=== PATIENT | male | born 1955 | race Caucasian/White ===

== ENCOUNTER 2016-12-25 18:56 | Inpatient (IN) | payer MEDICAID ==
[~2016-12-25] VITALS: Ht 175.3 cm; Wt 84.6 kg
[~2016-12-25 18:56] MED LIST: FOLI-17 PO; IBUP-1222 PO; MIRT15TA4 PO; MULT-750 PO; NICO1PAT5 TD; SERT50TA5 PO; THIA100T6 PO
[2016-12-25 19:58] LABS: BLOOD UREA NITROGEN 9 mg/dL (7-18)
[2016-12-25 20:00] LABS: HEMOGLOBIN 5.6 g/dL (13.7-18.0)
[2016-12-25 20:02] LABS: ASPARTATE AMINO TRANSFERASE 13 U/L (15-37); DIFF TOTAL CELLS COUNTED 100 CELL DIFF
[2016-12-25] MEDS ORDERED: POTASSIUM CHLORIDE 20 MEQ TAB.ER.PRT PO ONE (20:30)
[2016-12-25] MEDS ORDERED: POTASSIUM CHLORIDE 20 MEQ TAB.ER.PRT ONE (20:41)
[2016-12-25 20:42] LABS: VERIFY COUNTS? YES
[2016-12-25 20:43] LABS: ANISOCYTOSIS 1+; HYPOCHROMIA 1+; MICROCYTOSIS 1+; POLYCHROMASIA 1+; STOMATOCYTES 1+
[2016-12-25 21:17] LABS: IS PT STATUS REG ER OR PRE ER? YES
[2016-12-25 21:57] VITALS: BP 161/68
[2016-12-25 22:07] VITALS: BP 154/72
[2016-12-25 22:12] VITALS: BP 158/68
[2016-12-25] MEDS ORDERED: SODIUM CHLORIDE 0.9% 1,000 ML IV ONE (22:13)
[2016-12-25] MEDS ORDERED: ONDANSETRON 2MG/ML, 2ML IVPush PRN (22:30)
[2016-12-25] MEDS ORDERED: MORPHINE SULFATE 4 MG/ML, 1ML IVPush PRN (22:30)
[2016-12-25 22:38] VITALS: BP 161/64
[2016-12-25] MEDS ORDERED: ONDANSETRON ODT 4 MG PO PRN (23:00)
[2016-12-25] MEDS ORDERED: ONDANSETRON 2MG/ML, 2ML IVP PRN (23:00)
[2016-12-25] MEDS ORDERED: ENALAPRILAT 1.25 MG/ML, 2ML IVPush PRN (23:00)
[2016-12-25 23:30] VITALS: BP 147/89
[2016-12-26] VITALS (14 sets, daily range): BP systolic 134–159; BP diastolic 79–99
[2016-12-26] MEDS: ACETAMINOPHEN 325 MG TABLET PO PRN ×4 (00:02→20:34)
[2016-12-26] MEDS: NICOTINE 21 MG/24 HR PATCH.TD24 TD SCH ×2 (00:16→23:08)
[2016-12-26 03:03] LABS: HEMOGLOBIN 7.9 g/dL (13.7-18.0)
[2016-12-26 03:12] LABS: BLOOD UREA NITROGEN 10 mg/dL (7-18)
[2016-12-26 03:16] LABS: ASPARTATE AMINO TRANSFERASE 14 U/L (15-37)
[2016-12-26 03:17] LABS: ANISOCYTOSIS 1+; HYPOCHROMIA 1+; MICROCYTOSIS 1+; POLYCHROMASIA 1+; STOMATOCYTES 1+
[2016-12-26 03:18] LABS: POIKILOCYTOSIS 1+
[2016-12-26 03:28] LABS: IS PT STATUS REG ER OR PRE ER? NO
[2016-12-26] MEDS ORDERED: POTASSIUM CHLORIDE 20 MEQ TAB.ER.PRT PO ONE (04:00)
[2016-12-26] MEDS: NS + 20MEQ KCL 1,000 ML IV SCH ×2 (04:48→20:34)
[2016-12-26] MEDS: FOLIC ACID 1 MG TABLET PO SCH (09:37)
[2016-12-26] MEDS: MULTIVITAMINS WITH IRON TABLET PO SCH (09:37)
[2016-12-26] MEDS: SERTRALINE 50MG TABLET PO SCH (09:37)
[2016-12-26] MEDS: THIAMINE 100MG TABLET PO SCH (09:37)
[2016-12-26] MEDS: SENNA/DOCUSATE TABLET PO SCH (09:41)
[2016-12-26 09:52] LABS: IS PT STATUS REG ER OR PRE ER? NO
[2016-12-26] MEDS ORDERED: POTASSIUM CHLORIDE 40 MEQ in SODIUM CHLORIDE 0.9% 500 ML IV ONE (10:00)
[2016-12-26 12:54] LABS: HEMOGLOBIN 8.6 g/dL (13.7-18.0)
[2016-12-26 21:18] LABS: PATH.CAST-FLAG NOT PRESENT; SPERM-FLAG NOT PRESENT; SRC-FLAG NOT PRESENT; XTAL-FLAG NOT PRESENT; YLC-FLAG NOT PRESENT
[2016-12-26 21:20] LABS: ICTOTEST POSITIVE
[2016-12-26] MEDS ORDERED: LORazepam 1MG TABLET PO PRN (23:30)
[2016-12-26] MEDS ORDERED: LORazepam 0.5MG TABLET PO PRN (23:30)
[2016-12-26] MEDS ORDERED: LORazepam 2 MG/ML, 1ML IV PRN ×4 (23:30)
[2016-12-27] MEDS: LORazepam 2 MG/ML, 1ML IV PRN (00:18)
[2016-12-27 02:00] VITALS: BP 163/103
[2016-12-27 04:46] VITALS: BP 129/83
[2016-12-27 05:29] LABS: HEMOGLOBIN 8.7 g/dL (13.7-18.0)
[2016-12-27 05:36] LABS: BLOOD UREA NITROGEN 15 mg/dL (7-18)
[2016-12-27 06:19] VITALS: BP 124/77
[2016-12-27 07:11] VITALS: BP 129/80
[2016-12-27] MEDS: OMEPRAZOLE 10 MG CAPSULE.DR PO SCH (08:44)
[2016-12-27] MEDS: FOLIC ACID 1 MG TABLET PO SCH (08:45)
[2016-12-27] MEDS: SENNA/DOCUSATE TABLET PO SCH (08:45)
[2016-12-27] MEDS: SERTRALINE 50MG TABLET PO SCH (08:45)
[2016-12-27] MEDS: MULTIVITAMINS WITH IRON TABLET PO SCH (08:45)
[2016-12-27] MEDS: THIAMINE 100MG TABLET PO SCH (08:45)
[2016-12-27] MEDS: ACETAMINOPHEN 325 MG TABLET PO PRN ×2 (08:49→18:33)
[2016-12-27] MEDS: NS + 20MEQ KCL 1,000 ML IV SCH ×2 (09:46→21:08)
[2016-12-27 12:33] VITALS: BP 132/82
[2016-12-27 20:00] VITALS: BP 131/79
[2016-12-27 20:53] LABS: OCCBLD OBC PASS
[2016-12-28] VITALS (7 sets, daily range): BP systolic 121–139; BP diastolic 78–94
[2016-12-28] MEDS: ACETAMINOPHEN 325 MG TABLET PO PRN ×3 (01:02→21:09)
[2016-12-28] MEDS: NICOTINE 21 MG/24 HR PATCH.TD24 TD SCH ×2 (01:02→21:09)
[2016-12-28 02:21] LABS: HEMOGLOBIN 8.3 g/dL (13.7-18.0)
[2016-12-28 02:38] LABS: IS PT STATUS REG ER OR PRE ER? NO
[2016-12-28 02:58] LABS: BLOOD UREA NITROGEN 16 mg/dL (7-18)
[2016-12-28] MEDS: OMEPRAZOLE 10 MG CAPSULE.DR PO SCH (08:36)
[2016-12-28 08:47] LABS: IS PT STATUS REG ER OR PRE ER? NO
[2016-12-28] MEDS: SENNA/DOCUSATE TABLET PO SCH (09:00)
[2016-12-28] MEDS: SERTRALINE 50MG TABLET PO SCH (09:08)
[2016-12-28] MEDS: MULTIVITAMINS WITH IRON TABLET PO SCH (09:08)
[2016-12-28] MEDS: THIAMINE 100MG TABLET PO SCH (09:08)
[2016-12-28] MEDS: FOLIC ACID 1 MG TABLET PO SCH (09:08)
[2016-12-28] MEDS: NS + 20MEQ KCL 1,000 ML IV SCH ×2 (09:24→12:05)
[2016-12-28] MEDS ORDERED: MORPHINE SULFATE 4 MG/ML, 1ML ONE (14:26)
[2016-12-28] MEDS ORDERED: morphine SULFATE 10 MG/ML, 1ML IVPush ONE (14:30)
[2016-12-28] MEDS: ASPIRIN 81 MG TABLET CHEW PO SCH (14:31)
[2016-12-28] MEDS: METOPROLOL TARTRATE 25 MG TABLET PO SCH ×2 (14:31→17:47)
[2016-12-28 14:33] LABS: IS PT STATUS REG ER OR PRE ER? NO
[2016-12-28] MEDS: ATORVASTATIN 40 MG TABLET PO SCH (21:08)
[2016-12-29] VITALS (9 sets, daily range): BP systolic 106–149; BP diastolic 75–92
[2016-12-29] MEDS: NS + 20MEQ KCL 1,000 ML IV SCH ×2 (01:41→22:45)
[2016-12-29] MEDS: ACETAMINOPHEN 325 MG TABLET PO PRN (03:44)
[2016-12-29] MEDS: METOPROLOL TARTRATE 25 MG TABLET PO SCH (06:13)
[2016-12-29 07:55] LABS: BLOOD UREA NITROGEN 15 mg/dL (7-18)
[2016-12-29] MEDS: SERTRALINE 50MG TABLET PO SCH (09:00)
[2016-12-29] MEDS: FOLIC ACID 1 MG TABLET PO SCH (09:00)
[2016-12-29] MEDS: SENNA/DOCUSATE TABLET PO SCH (09:00)
[2016-12-29] MEDS: OMEPRAZOLE 10 MG CAPSULE.DR PO SCH (09:00)
[2016-12-29] MEDS: MULTIVITAMINS WITH IRON TABLET PO SCH (09:00)
[2016-12-29] MEDS: THIAMINE 100MG TABLET PO SCH (09:00)
[2016-12-29] MEDS: ASPIRIN 81 MG TABLET CHEW PO SCH (09:00)
[2016-12-29] MEDS ORDERED: MAGNESIUM SULFATE PMX 2GM/50ML 50 ML IV ONE (09:30)
[2016-12-29] MEDS: ENALAPRIL 2.5MG TABLET PO SCH ×2 (11:12→20:07)
[2016-12-29] MEDS: FERROUS GLUCONATE 324 MG TABLET PO SCH (11:12)
[2016-12-29] MEDS ORDERED: OMNIPAQUE 350 MG/ML, 100ML BOTTLE ONE (14:01)
[2016-12-29] MEDS: HYDROcodone/APAP 5/325 TABLET PO PRN ×2 (16:58→22:42)
[2016-12-29] MEDS: CARVEDILOL 6.25 MG TABLET PO SCH (16:59)
[2016-12-29] MEDS: ATORVASTATIN 40 MG TABLET PO SCH (20:06)
[2016-12-29] MEDS: NICOTINE 21 MG/24 HR PATCH.TD24 TD SCH (20:20)
[2016-12-30 03:19] VITALS: BP 117/74
[2016-12-30 05:25] VITALS: BP 123/83
[2016-12-30] MEDS: CARVEDILOL 6.25 MG TABLET PO SCH ×2 (05:29→18:40)
[2016-12-30] MEDS: HYDROcodone/APAP 5/325 TABLET PO PRN (05:29)
[2016-12-30 05:58] LABS: HEMOGLOBIN 8.2 g/dL (13.7-18.0)
[2016-12-30 06:09] LABS: BLOOD UREA NITROGEN 16 mg/dL (7-18)
[2016-12-30 07:28] VITALS: BP 109/65
[2016-12-30] MEDS: LORazepam 2 MG/ML, 1ML IV PRN (08:04)
[2016-12-30] MEDS: SENNA/DOCUSATE TABLET PO SCH (09:00)
[2016-12-30] MEDS: THIAMINE 100MG TABLET PO SCH (09:14)
[2016-12-30] MEDS: SERTRALINE 50MG TABLET PO SCH (09:14)
[2016-12-30] MEDS: ENALAPRIL 2.5MG TABLET PO SCH ×2 (09:14→20:52)
[2016-12-30] MEDS: MULTIVITAMINS WITH IRON TABLET PO SCH (09:15)
[2016-12-30] MEDS: FERROUS GLUCONATE 324 MG TABLET PO SCH (09:15)
[2016-12-30] MEDS: FOLIC ACID 1 MG TABLET PO SCH (09:15)
[2016-12-30] MEDS: ASPIRIN 81 MG TABLET CHEW PO SCH (09:15)
[2016-12-30] MEDS: OMEPRAZOLE 10 MG CAPSULE.DR PO SCH (09:15)
[2016-12-30] MEDS: SPIRONOLACTONE 25 MG TABLET PO SCH (09:15)
[2016-12-30 13:11] VITALS: BP 113/71
[2016-12-30] MEDS: LEVOFLOXACIN/PMX 750MG/150ML 150 ML IV SCH (16:20)
[2016-12-30 18:24] VITALS: BP 106/70
[2016-12-30 20:49] VITALS: BP 105/70
[2016-12-30] MEDS: ATORVASTATIN 40 MG TABLET PO SCH (20:51)
[2016-12-30] MEDS: NICOTINE 21 MG/24 HR PATCH.TD24 TD SCH (20:53)
[2016-12-31] VITALS (12 sets, daily range): BP systolic 86–112; BP diastolic 50–77
[2016-12-31] MEDS: CARVEDILOL 6.25 MG TABLET PO SCH ×2 (05:55→18:35)
[2016-12-31 06:58] LABS: HEMOGLOBIN 7.8 g/dL (13.7-18.0)
[2016-12-31 07:06] LABS: BLOOD UREA NITROGEN 14 mg/dL (7-18)
[2016-12-31] MEDS: ENALAPRIL 2.5MG TABLET PO SCH ×2 (08:59→19:49)
[2016-12-31] MEDS: SENNA/DOCUSATE TABLET PO SCH (09:00)
[2016-12-31] MEDS: MULTIVITAMINS WITH IRON TABLET PO SCH (09:05)
[2016-12-31] MEDS: OMEPRAZOLE 10 MG CAPSULE.DR PO SCH (09:05)
[2016-12-31] MEDS: SERTRALINE 50MG TABLET PO SCH (09:06)
[2016-12-31] MEDS: FOLIC ACID 1 MG TABLET PO SCH (09:06)
[2016-12-31] MEDS: FERROUS GLUCONATE 324 MG TABLET PO SCH (09:06)
[2016-12-31] MEDS: SPIRONOLACTONE 25 MG TABLET PO SCH (09:06)
[2016-12-31] MEDS: THIAMINE 100MG TABLET PO SCH (09:06)
[2016-12-31] MEDS: ASPIRIN 81 MG TABLET CHEW PO SCH (09:06)
[2016-12-31] MEDS: HYDROcodone/APAP 5/325 TABLET PO PRN (12:13)
[2016-12-31] MEDS: ACETAMINOPHEN 325 MG TABLET PO PRN (14:37)
[2016-12-31] MEDS: LEVOFLOXACIN/PMX 750MG/150ML 150 ML IV SCH (16:47)
[2016-12-31] MEDS: ATORVASTATIN 40 MG TABLET PO SCH (19:49)
[2016-12-31] MEDS: NICOTINE 21 MG/24 HR PATCH.TD24 TD SCH (19:49)
[2017-01-01 01:24] VITALS: BP 108/70
[2017-01-01 04:58] LABS: HEMOGLOBIN 9.3 g/dL (13.7-18.0)
[2017-01-01 05:26] LABS: BLOOD UREA NITROGEN 16 mg/dL (7-18)
[2017-01-01] MEDS: CARVEDILOL 6.25 MG TABLET PO SCH ×2 (06:32→16:25)
[2017-01-01] MEDS: ASPIRIN 81 MG TABLET CHEW PO SCH (07:47)
[2017-01-01] MEDS: OMEPRAZOLE 10 MG CAPSULE.DR PO SCH (07:47)
[2017-01-01] MEDS: SERTRALINE 50MG TABLET PO SCH (07:47)
[2017-01-01] MEDS: FOLIC ACID 1 MG TABLET PO SCH (07:47)
[2017-01-01] MEDS: THIAMINE 100MG TABLET PO SCH (07:47)
[2017-01-01] MEDS: FERROUS GLUCONATE 324 MG TABLET PO SCH (07:47)
[2017-01-01] MEDS: ENALAPRIL 2.5MG TABLET PO SCH ×2 (07:47→19:46)
[2017-01-01] MEDS: MULTIVITAMINS WITH IRON TABLET PO SCH (07:47)
[2017-01-01] MEDS: SENNA/DOCUSATE TABLET PO SCH (07:48)
[2017-01-01] MEDS: SPIRONOLACTONE 25 MG TABLET PO SCH (07:48)
[2017-01-01 09:45] VITALS: BP 108/68
[2017-01-01] MEDS: LEVOFLOXACIN/PMX 750MG/150ML 150 ML IV SCH (13:35)
[2017-01-01 15:59] VITALS: BP 120/77
[2017-01-01 18:54] VITALS: BP 107/71
[2017-01-01] MEDS: NICOTINE 21 MG/24 HR PATCH.TD24 TD SCH (19:46)
[2017-01-01] MEDS: ATORVASTATIN 40 MG TABLET PO SCH (19:46)
[2017-01-02 00:46] VITALS: BP 132/83
[2017-01-02 04:53] LABS: HEMOGLOBIN 9.5 g/dL (13.7-18.0)
[2017-01-02 04:54] LABS: BLOOD UREA NITROGEN 14 mg/dL (7-18)
[2017-01-02 07:03] VITALS: BP 122/75
[2017-01-02] MEDS: CARVEDILOL 6.25 MG TABLET PO SCH ×2 (07:35→15:46)
[2017-01-02] MEDS: THIAMINE 100MG TABLET PO SCH (07:35)
[2017-01-02] MEDS: FERROUS GLUCONATE 324 MG TABLET PO SCH (07:35)
[2017-01-02] MEDS: ENALAPRIL 2.5MG TABLET PO SCH ×2 (07:35→20:24)
[2017-01-02] MEDS: OMEPRAZOLE 10 MG CAPSULE.DR PO SCH (07:35)
[2017-01-02] MEDS: SPIRONOLACTONE 25 MG TABLET PO SCH (07:35)
[2017-01-02] MEDS: FOLIC ACID 1 MG TABLET PO SCH (07:35)
[2017-01-02] MEDS: SERTRALINE 50MG TABLET PO SCH (07:35)
[2017-01-02] MEDS: ASPIRIN 81 MG TABLET CHEW PO SCH (07:35)
[2017-01-02] MEDS: MULTIVITAMINS WITH IRON TABLET PO SCH (07:36)
[2017-01-02] MEDS: SENNA/DOCUSATE TABLET PO SCH (07:36)
[2017-01-02 13:09] VITALS: BP 118/80
[2017-01-02] MEDS: LEVOFLOXACIN 750 MG TABLET PO SCH (15:47)
[2017-01-02 19:47] VITALS: BP 105/69
[2017-01-02] MEDS: ATORVASTATIN 40 MG TABLET PO SCH (20:24)
[2017-01-02] MEDS: NICOTINE 21 MG/24 HR PATCH.TD24 TD SCH (20:24)
[2017-01-03] MEDS: ACETAMINOPHEN 325 MG TABLET PO PRN (00:15)
[2017-01-03 01:10] VITALS: BP 117/74
[2017-01-03 07:21] VITALS: BP 105/69
[2017-01-03 07:45] VITALS: BP 89/55
[2017-01-03] MEDS: FERROUS GLUCONATE 324 MG TABLET PO SCH (07:53)
[2017-01-03] MEDS: OMEPRAZOLE 10 MG CAPSULE.DR PO SCH (07:53)
[2017-01-03] MEDS: ASPIRIN 81 MG TABLET CHEW PO SCH (07:54)
[2017-01-03] MEDS: MULTIVITAMINS WITH IRON TABLET PO SCH (07:54)
[2017-01-03] MEDS: THIAMINE 100MG TABLET PO SCH (07:54)
[2017-01-03] MEDS: FOLIC ACID 1 MG TABLET PO SCH (07:54)
[2017-01-03] MEDS: SERTRALINE 50MG TABLET PO SCH (07:54)
[2017-01-03] MEDS: SPIRONOLACTONE 25 MG TABLET PO SCH (07:54)
[2017-01-03] MEDS: SENNA/DOCUSATE TABLET PO SCH (07:59)
[2017-01-03] MEDS: CARVEDILOL 6.25 MG TABLET PO SCH (07:59)
[2017-01-03] MEDS: ENALAPRIL 2.5MG TABLET PO SCH (07:59)
[2017-01-03] MEDS ORDERED: ENAL2.5T PO (12:11)
[2017-01-03] MEDS ORDERED: ATOR40TA78 PO (12:11)
[2017-01-03] MEDS ORDERED: LEVO750T26 PO (12:11)
[2017-01-03] MEDS ORDERED: SPIR25TA PO (12:11)
[2017-01-03] MEDS ORDERED: SERT50TA5 PO (12:11)
[2017-01-03] MEDS ORDERED: CARV6.2512 PO (12:11)
[2017-01-03 13:53] VITALS: BP 120/77
[2017-01-03] MEDS: LEVOFLOXACIN 750 MG TABLET PO SCH (14:30)
[2017-01-03] MEDS ORDERED: ASPI-515 PO (16:05)
[2017-01-03] MEDS ORDERED: OMEP10CA4 PO (16:05)
== END 2017-01-03 15:20 | disposition hospice, home (50) | DRG 280 ==
LOC: ED 20:36 → 4WST 22:46 → CCU 12-28 06:10 → 5SO 12-28 15:18
PROVIDERS: ADMIT Family Medicine; ATTEND Family Medicine
PROC: 30233N1 Transfusion of Nonautologous Red Blood Cells into Peripheral Vein, Percutaneous Approach (ICD-10-PCS; principal; 2016-12-25)
PROC: 0T9B70Z Drainage of Bladder with Drainage Device, Via Natural or Artificial Opening (ICD-10-PCS; 2016-12-26)
DX: I21.4 Non-ST elevation (NSTEMI) myocardial infarction (principal); J18.9 Pneumonia, unspecified organism; F19.20 Other psychoactive substance dependence, uncomplicated; E46 Unspecified protein-calorie malnutrition; E87.1 Hypo-osmolality and hyponatremia; K92.2 Gastrointestinal hemorrhage, unspecified; D63.8 Anemia in other chronic diseases classified elsewhere; R62.7 Adult failure to thrive; F12.90 Cannabis use, unspecified, uncomplicated; F17.210 Nicotine dependence, cigarettes, uncomplicated; F32.9 Major depressive disorder, single episode, unspecified; I10 Essential (primary) hypertension; E87.6 Hypokalemia; F10.20 Alcohol dependence, uncomplicated; E83.51 Hypocalcemia; E78.5 Hyperlipidemia, unspecified; R09.02 Hypoxemia; J44.9 Chronic obstructive pulmonary disease, unspecified; I25.5 Ischemic cardiomyopathy; I48.91 Unspecified atrial fibrillation; Z51.5 Encounter for palliative care; Z68.27 Body mass index [BMI] 27.0-27.9, adult
CPT/HCPCS: 36415; 36556; 71010; 71260; 74177; 80048; 80053; 80061; 80307; 81001; 82040; 82272; 82274; 82550; 82705; 82728; 83540; 83550; 83690; 83735; 84100; 84134; 84443; 84466; 84484; 85014; 85018; 85025; 85610; 86850; 86900; 86923; 87081; 87324; 93005; 93306; J1956; J3480; Q9967; J2060; J2270; J3475; J7030; J7040; P9016